=== PATIENT | female | born 1935 | race Two or more races ===

== ENCOUNTER 2024-03-10 19:07 | Emergency (ER) | payer OTHER, SELFPAY ==
[2024-03-10 19:10] VITALS: BP 160/78
[2024-03-10] MEDS: TYLENOL 1000 MG PO (22:36)
[2024-03-10 22:40] VITALS: BP 155/74
--- NOTE | 2024-03-10 22:53 | ED.GENMED ---
History of Present Illness
General
Chief Complaint: Musculo-Skeletal Complaint
Source: patient
Exam Limitations: none
Time Seen by Provider: 03/10/24 21:47
Nursing documentation reviewed up to this point in time: agreed with
History of Present Illness
History of Present Illness:
Patient presents to ED secondary to worsening right knee pain over the past 3 days, after she twisted her knee while moving in bed, when her foot was caught on the bedsheet. Denies fever or chills. Denies direct trauma. Denies loss of sensation
or weakness. Patient states initially her pain was not that bad, but worsened today.
Review of Systems
Review of Systems
Allergies reviewed?: Yes
All Other Systems: ROS reviewed and negative except as documented in HPI and ROS
Constitutional: Reports no symptoms; Denies fever
Musculoskeletal: Reports other (Knee pain with swelling)
Skin: Reports no symptoms
Neurological: Reports no symptoms
Phy Exam
Physical Exam
Physical Exam:
Physical Exam
General: mild painful distress, not acutely ill. afebrile
Head: nc/at. eomi
Neck: supple. normal range of motion
Neuro: alert and oriented. no focal neurological deficits
Skin: no rash
Psychiatric: well kept. interactive and cooperative
Extremities: left knee: diffuse tenderness with swelling noted, without obvious deformity.
Course
Orders/Labs/Results
Orders:
Orders
03/10/24 19:13
CR Knee- Right 4 Or More View* Urgent
Comment:
Reason For Exam: pain
03/10/24 22:28
Acetaminophen [Tylenol] 1,000 mg PO NOW STA
Vital Signs
Initial and Last Documented VS:
Initial Vital Signs
Temp Pulse Resp BP Pulse Ox
98.3 F 73 20 160/78 96
03/10/24 19:10 03/10/24 19:10 03/10/24 19:10 03/10/24 19:10 03/10/24 19:10
Last Documented Vital Signs
Temp Pulse Resp BP Pulse Ox
98.3 F 76 20 155/74 96
03/10/24 19:10 03/10/24 23:03 03/10/24 19:10 03/10/24 23:03 03/10/24 19:10
MDM/Problems Addressed
MDM/Problems Addressed:
X-ray report reviewed and discussed with patient. History exam consistent with likely knee sprain. Patient will be provided with walker for support, along with referral to Ortho surgery for outpatient follow-up. Patient otherwise is
neurologically intact, at time of discharge, to the care of her son.
*Critical Care Note
Total Time (30-74mins, 75-104mins- exclusive of procedures): Not Applicable
ED Attending Note
-
Portions of this chart may have been created with voice recognition software.� Occasional wrong word or��sound alike� substitutions may have occurred due to the inherent limitations of voice recognition software.
Discharge Plan
Departure
Patient Disposition: Home (Routine Discharge)
Date of Disposition: 03/10/24
Time of Disposition: 22:53
Patient with high blood pressure during this ER visit?: Yes
Discharge Problem:
Knee sprain
Instructions: Knee Sprain (DC)
Prescriptions:
No Action
multivitamin Tablet
1 tab PO DAILY
potassium chloride 10 mEq Capsule, Extended Release
10 meq PO DIRECTED
Rx Instructions:
Twice per week: Tue and Thur
isosorbide mononitrate 30 mg Tablet Extended Release 24 Hr
15 mg PO DAILY
clopidogrel 75 mg Tablet
75 mg PO DAILY
simvastatin 80 mg Tablet
80 mg PO HS
aspirin [Aspir-81] 81 mg Tablet,Delayed Release (Dr/Ec)
81 mg PO DAILY
famotidine 20 mg Tablet
20 mg PO DAILY
furosemide 20 mg Tablet
20 mg PO DIRECTED
Rx Instructions:
Twice per week: Tue and Thur
losartan-hydrochlorothiazide 50-12.5 mg Tablet
1 tab PO DAILY
ezetimibe 10 mg Tablet
10 mg PO DAILY
metoprolol tartrate 25 mg Tablet
25 mg PO BID
latanoprost (PF) 0.005 % Dropperette
1 drp OPHTHALMIC (EYE) DAILY
Rx Instructions:
BOTH EYES
Referrals:
Angela Santos I., DO [Active] -
Josef Gill, [Family Provider] -
Activity Restrictions/Additional Instructions:
As discussed, please follow-up with referred orthopedic surgeon for reevaluation.
Interventions
Interventions:
*Risk Screen - Suicide Last Done: 03/10/24 19:10
*General Assessment Last Done: 03/10/24 19:10
*Neglect/Abuse Screening Last Done: 03/10/24 19:10
*Nursing Disposition Last Done: 03/10/24 23:03
ED-Musculoskeletal Assessment Last Done: 03/10/24 20:57
Discharge Date and Time
Discharge Date/Time: 03/10/24 23:04
Print Language: PERSIAN
[2024-03-10 23:03] VITALS: BP 155/74
== END 2024-03-10 23:04 | disposition home or self-care (01) ==
LOC: EMR 19:07
PROVIDERS: EMERGENCY PHYSICIAN Emergency Medicine; FAMILY PHYSICIAN Family Medicine
DX: S83.91XA Sprain of unspecified site of right knee, initial encounter (principal); X50.1XXA Overexertion from prolonged static or awkward postures, initial encounter; Y93.89 Activity, other specified; E11.9 Type 2 diabetes mellitus without complications; E78.00 Pure hypercholesterolemia, unspecified; I11.0 Hypertensive heart disease with heart failure; I50.9 Heart failure, unspecified; Z79.82 Long term (current) use of aspirin
CPT/HCPCS: 99283; 73564

== ENCOUNTER → 2024-03-14 09:43 | Day surgery (SDC) | payer OTHER, SELFPAY ==
[2024-03-13 09:29] VITALS: BMI 30.6
[2024-03-13 09:59] LABS: % Basophils 0.1 % (0-2); % Eosinophils 0.2 % (0-6); % Immature Granulocytes 0.2 % (0-0.5); % Lymphocytes 83.2 % (20.5-51.1); % Monocytes 2.2 % (1.7-9.3); % Neutrophils 14.1 % (42.2-75.2); Absolute Eosinophils 0.1 10^3/uL (0-0.7); Absolute Immature Granulocytes 0.1 10^3/uL (0-0.05); Absolute Lymphocytes 36.6 10^3/uL (1.2-3.4); Absolute Neutrophils 6.2 10^3/uL (1.4-6.5); Hematocrit 34.1 % (37.0-47.0); Mean Corp Hgb Conc. 35.2 g/dL (33.0-37.0); Mean Corpuscular Hgb 32.3 pg (27.0-31.0); Mean Corpuscular Volume 91.9 fL (81.0-99.0); Nucleated Red Blood Cells % 0 %; Platelet Count 230 10^3/uL (130-400); Red Blood Cell Count 3.71 10^6/uL (4.20-5.40); Red Cell Dist. Width 12.8 % (11.5-14.5)
[2024-03-13 10:29] LABS: ALT (SGPT) 18 U/L (0-35); AST (SGOT) 29 U/L (14-36); Albumin 3.8 g/dl (3.5-5.0); Alkaline Phosphatase 73 U/L (38-126); Blood Urea Nitrogen 28 mg/dl (7-17); Calcium 9.3 mg/dl (8.4-10.2); Carbon Dioxide 26 mmol/L (22-30); Chloride 100 mmol/L (98-107); Estimated Creatinine Clearance 34 ml/min; Glucose 123 mg/dl (70-99); Potassium 4.2 mmol/L (3.5-5.1); Sodium 133 mmol/L (135-145); Total Bilirubin 1.7 mg/dl (0.2-1.3); Total Protein 6.4 g/dl (6.3-8.2); eGFR 48.63
[2024-03-14] VITALS (19 sets, daily range): BP systolic 119–148; BP diastolic 62–71
[2024-03-14] MEDS: NSS 224 ML IV (10:15)
--- NOTE | 2024-03-14 11:20 | ITS.CL.CATH ---
Paraprofessional Interpreter - Catheterization
Cardiac Catheterization
Procedure Report:
CARDIAC CATHETERIZATION REPORT
Date of Procedure: 03/14/2024
Referring: Zia Madsen MD
Indication: Exertional angina with exertional dyspnea and exertional fatigue
HEMODYNAMIC DATA
AO: 148/72
LV: 161/17
There is approximately 12 mmHg gradient across the aortic valve consistent with mild aortic stenosis.
LEFT VENTRICULOGRAPHY: Borderline anterolateral hypokinesis with EF 46% with trivial mitral regurgitation
CORONARY ANGIOGRAPHY
Dominance: Right
Left Main: 30% distal stenosis
LAD: The LAD has trivial luminal disease. There is a long stented segment in the mid LAD which includes a stent at the ostium of a diagonal branch as well. These stents appear spectacular with no restenosis
Circumflex: Trivial luminal irregularities
RCA: Large dominant vessel with mild luminal irregularities
Closure Device: None-the procedure was performed via the right radial artery. The Christopher's test was normal prior to the procedure.
Radiation (mGy): 217
DAP (cm2.Gy): 18.9
Fluoroscopy time: 2.0 minutes
CONCLUSIONS
1: Mild aortic stenosis
2: Borderline anterolateral hypokinesis with EF 46%
3. Very mild residual CAD with widely patent LAD and diagonal stents
4. Recommend stopping clopidogrel and continue aspirin monotherapy given her very advanced age/high bleeding risk
5. Given that fatigue is her main concern we will recommend to her reducing the metoprolol from 25 twice daily to 12.5 twice daily
Copy to: Zia Madsen MD, Josef Gill MD
Oscar Casarez MD, [facility]
[2024-03-14] MEDS: NSS 1000 IV (12:06)
== END | disposition home or self-care (01) ==
LOC: CATH 09:43
PROVIDERS: ATTENDING PHYSICIAN Internal Medicine Cardiovascular Disease; FAMILY PHYSICIAN Family Medicine; OTHER PHYSICIAN Internal Medicine Cardiovascular Disease
DX: I25.118 Atherosclerotic heart disease of native coronary artery with other forms of angina pectoris (principal); R06.09 Other forms of dyspnea; R53.83 Other fatigue; I35.0 Nonrheumatic aortic (valve) stenosis; I47.10 Supraventricular tachycardia, unspecified; I12.9 Hypertensive chronic kidney disease with stage 1 through stage 4 chronic kidney disease, or unspecified chronic kidney disease; N18.30 Chronic kidney disease, stage 3 unspecified; E78.5 Hyperlipidemia, unspecified; K21.9 Gastro-esophageal reflux disease without esophagitis; Z95.5 Presence of coronary angioplasty implant and graft; Z87.891 Personal history of nicotine dependence; Z79.82 Long term (current) use of aspirin; Z79.02 Long term (current) use of antithrombotics/antiplatelets
CPT/HCPCS: 36415; 80053; 85025; 93005; 93458; C1894; Q9967